=== PATIENT | male | born 1925 | race Caucasian/White ===

== ENCOUNTER 2016-11-30 20:56 | Emergency (ER) | payer BC ==
[~2016-11-30] VITALS: Ht 180.3 cm; Wt 75.0 kg
[~2016-11-30 20:56] MED LIST: ASPI81TA21 PO; ATOR-24 PO; CSPOPS OPB; HPRIS5M SQ; ISOS120T5 PO; MRPIS2 IV; NITR0.4S UT
[2016-11-30 20:58] VITALS: TEMP 36.5; Ht 180.3 cm; Wt 75.0 kg
[2016-11-30] MEDS ORDERED: AMOX875T PO (21:59)
[2016-11-30] MEDS ORDERED: AMOXICIL/CLAVU 875MG HOME PACK PO ONE (22:00)
--- NOTE | 2016-11-30 22:05 | EMERGENCY ROOM VISIT NOTE ---
ED Visit Note First contact with patient: 21:40 I did evaluate and examine this patient myself. I did guide management for the patient. I agree with the PA's assessment as discussed. Please see the PAs dictation for further details.
[2016-11-30 22:14] VITALS: BP 122/73; PULSE 63; O2SAT 94
[2016-11-30] MEDS ORDERED: DORZ1SOL6 OPB (22:44)
[2016-11-30] MEDS ORDERED: CLOP1TAB5 PO (22:44)
[2016-11-30] MEDS ORDERED: DOCU-94 PO (22:44)
[2016-11-30] MEDS ORDERED: CALCTAB7 PO (22:44)
[2016-11-30] MEDS ORDERED: CZR25 PO (22:44)
[2016-11-30] MEDS ORDERED: METO25TA56 PO (22:44)
--- NOTE | 2016-12-01 05:35 | EMERGENCY ROOM VISIT NOTE ---
ED Visit Note First contact with patient: 21:40 CHIEF COMPLAINT: Animal bite HISTORY OF PRESENT ILLNESS: This 89 yo patient presents to the emergency department after they sustained a cat bite to the right hand. The patient states he was petting his cat when he gets down accidentally bit him. The patient reports that the animal's immunizations are not up-to-date but does not believe this Has rabies as he is 15 years old and an indoor cat. The patient complains of mild 1/10 pain at the site of the injury. Pain is worse with movement. Tetanus status is up to date. REVIEW OF SYSTEMS: A 6 system review of systems was completed with positives and pertinent negatives listed in the HPI. ALLERGIES: none MEDICATIONS: reviewed PMH: Medical Problems: (1) AORTOCORONARY BYPASS Status: Resolved (2) CAD (coronary artery disease) Status: Chronic (3) HYPERTENSION NOS Status: Chronic (4) PERCUTANEOUS TRANSLUM CORON ANGIOPLASTY STATUS Status: Resolved (5) PURE HYPERCHOLESTEROLEM Status: Chronic Surgical Problems: (1) History of heart artery stent Status: Chronic PHYSICAL EXAM: Vital Signs reviewed, see Nurse's notes, vital signs stable. GENERAL: pleasant male, awake, alert, well appearing, no acute distress. Non toxic in appearance. MUSCULOSKELETAL: Examination of the hand reveals a puncture type of wound. There is minimal swelling on inspection. Palpation of the hand reveals no tenderness. No significant crepitus or warmth noted. No joint space, tendon, or vascular involvement. Distal pulses intact. SKIN: No signs of infection. NEURO: No sensory or motor deficits noted over all dermatomes and myotomes tested. EMERGENCY DEPARTMENT COURSE AND DECISION MAKING: I examined the patient. The patient presented with an isolated bite wound as described as above. By the history, there is very low concern for rabies exposure. No signs of infection on examination. ER Treatment: Department of Health paperwork completed. Antibiotic prophylaxis is indicated. The area was cleansed with Betadine and sterile saline and dressed with bacitracin and a bandage. Patient was advised to have the cat quarantined with his Vet as he declined the rabies vaccine and immunoglobulin. I do believe this is extremely low risk though. Patient was started on antibiotics. He was advised to follow-up family care in 2 days for wound recheck or here in the ER sooner for fevers, redness, drainage, worsening signs or symptoms or as needed. Discharge instructions reviewed. Discharged in stable condition. DIAGNOSIS: Right hand cat bite DISCHARGED INSTRUCTIONS: As below Problem List Medical Problems: (1) AORTOCORONARY BYPASS Status: Resolved (2) CAD (coronary artery disease) Status: Chronic (3) HYPERTENSION NOS Status: Chronic (4) PERCUTANEOUS TRANSLUM CORON ANGIOPLASTY STATUS Status: Resolved (5) PURE HYPERCHOLESTEROLEM Status: Chronic Surgical Problems: (1) History of heart artery stent Status: Chronic Current/Historical Medications Scheduled Amoxicillin & Pot Clavulanate (Augmentin 875-125 mg), 1 TAB PO BID Aspirin Enteric Coated (Ecotrin Or Generic), 81 MG PO DAILY Atorvastatin (Lipitor), 40 MG PO DAILY Calcium Carbonate-Vitamin D W/ (Caltrate 600 Plus), 1 TAB PO DAILY Clopidogrel Bisulfate (Plavix), 75 MG PO DAILY Docusate Sodium (Colace), 1 CAP PO DAILY Dorzolamide Hcl-Timolol Maleat (Cosopt Oph), 1 DROPS OPB BID Isosorbide Mononitrate (Imdur Ext Rel), 240 MG PO QAM Losartan Potassium (Losartan Potassium), 25 MG PO DAILY Metoprolol Tartrate (Lopressor) (Lopressor), 25 MG PO BID Nitroglycerin (Nitrostat), 0.4 MG UT PRN Allergies Coded Allergies: No Known Allergies (Verified Allergy, Unknown, ., 09/12/09) Vital Signs Date Time Temp Pulse Resp B/P Pulse Ox O2 Delivery O2 Flow Rate FiO2 11/30/16 22:14 63 20 122/73 94 11/30/16 20:58 36.5 73 20 159/80 94 Room Air Medications Administered Medications (Trade) Dose Ordered Sig/Wenceslao Route Start Time Stop Time Status Last Admin Dose Admin Amoxicillin/ Clavulanate Potassium (Augmentin 875MG Home Pack) 1 homepack UD ONCE PO 11/30/16 22:00 11/30/16 22:01 DC 11/30/16 22:05 1 HOMEPACK Departure Information Impression Primary Impression: Cat bite Dispostion Home / Self-Care Condition GOOD Prescriptions Amoxicillin & Pot Clavulanate (Augmentin 875-125 mg) 1 Tab Tab 1 TAB PO BID for 9 Days, #18 TAB Prov: Kelin Presley PA-C 11/30/16 Referrals Ayaka Carrasquillo DO (PCP) Forms HOME CARE DOCUMENTATION FORM, IMPORTANT VISIT INFORMATION Patient Instructions My [facility], ED Bite Animal General Additional Instructions Call your vet tomorrow morning and have your cat observed for possible rabies as you have elected not to receive the rabies series or vaccine today. Antibiotic ointment and bandage to the areas until healed. Follow up with family doctor or return for any signs of infection (increasing redness, swelling , drainage, or fever). Keep covered when in sun until fully healed then SPF 50 or higher until scar healed. Amoxicillin Clavulanate (Augmentin) 875mg: Take one pill twice daily for 10 days for your infection. All antibiotics can cause diarrhea. If this occurs and you feel worse or it does not resolve in 1-2 days follow up with your doctor or return to the Emergency Department as this could be signs of serious underlying problems. Any medication can cause an allergic reaction, stop the pills immediately and return to the ER for rash, hives, breathing difficulties, or swelling. Ibuprofen(Motrin, Advil) may be used for fever or pain. Use 600mg every six hours as needed. Take with food. Avoid using more than 2400mg in a 24 hour period. Do not use 2400mg per day for more than three consecutive days without physician direction. Prolonged inappropriate use can lead to stomach upset or ulcers. (AND/OR) Acetaminophen(Tylenol) may be used for fever or pain. Use 1000mg every six hours as needed. Avoid using more than 3000mg in a 24 hour period. Rest and drink plenty of fluids. Continue current medications. Return to the ER for severe pain, persistent fevers, spreading redness, or any worsening of your condition. Follow up with your primary physician within 2-3 days for a recheck of the current condition.
== END 2016-11-30 22:16 | disposition home or self-care (01) ==
LOC: C.EDB 20:57 → C.EDD 22:16
DX: S61.451A Open bite of right hand, initial encounter (principal); W55.01XA Bitten by cat, initial encounter; I25.10 Atherosclerotic heart disease of native coronary artery without angina pectoris; I10 Essential (primary) hypertension; E78.00 Pure hypercholesterolemia, unspecified; Z95.1 Presence of aortocoronary bypass graft

== ENCOUNTER → 2017-03-10 | Outpatient (CLI) | payer BC ==
[~2017-03-10] MED LIST changes: +CALCTAB7 PO; +CLOP1TAB5 PO; -CSPOPS OPB; +CZR25 PO; +DOCU-94 PO; +DORZ1SOL6 OPB; -HPRIS5M SQ; +METO25TA56 PO; -MRPIS2 IV
[2017-03-10 13:32] LABS: BASO % 0.2 %; BASO ABS # 0.01 K/uL (0-0.2); COMPLETE YES; EOS % 6.3 %; HEMATOCRIT 41.3 % (42-52); IG% 0.2 %; LYMPH % 24.1 %; LYMPH ABS # 1.27 K/uL (1.2-3.4); MEAN CELL VOLUME 101.7 fL (80-100); MEAN CORPUSCULAR HGB CONC 32.4 g/dl (32-36); MEAN PLATELET VOLUME 10.9 fL (7.4-10.4); MONO % 10.6 %; NEUT % 58.6 %; PLATELET COUNT 179 K/uL (130-400); RED BLOOD COUNT 4.06 M/uL (4.7-6.1); WHITE BLOOD COUNT 5.27 K/uL (4.8-10.8)
[2017-03-10 14:07] LABS: ALT/SGPT 20 U/L (12-78); BLOOD UREA NITROGEN 24 mg/dl (7-18); BUN/CREATININE RATIO 25.1 (10-20); CARBON DIOXIDE 29 mmol/L (21-32); CHLORIDE 108 mmol/L (98-107); CHOLESTEROL 139 mg/dl (0-200); CREATININE 0.94 mg/dl (0.60-1.40); GLUCOSE 99 mg/dl (70-99); POTASSIUM 4.3 mmol/L (3.5-5.1); SODIUM 143 mmol/L (136-145)
[2017-03-10 14:10] LABS: ALB/GLOB RATIO 1.1 (0.9-2); ALKALINE PHOSPHATASE 69 U/L (45-117); AST/SGOT 17 U/L (15-37); CHOLESTEROL/HDL RATIO 3.1; HDL CHOLESTEROL 45 mg/dl; LDL CHOLESTEROL CALCULATED 82 mg/dl; TRIGLYCERIDES 60 mg/dl (0-150); VERY LOW DENSITY LIPOPROT CALC 12 mg/dl
== END | disposition home or self-care (01) ==
LOC: C.LABBC 10:04
PROVIDERS: ATTEND Family Medicine
DX: I25.10 Atherosclerotic heart disease of native coronary artery without angina pectoris (principal); E78.5 Hyperlipidemia, unspecified; D49.0 Neoplasm of unspecified behavior of digestive system; I10 Essential (primary) hypertension; Z85.46 Personal history of malignant neoplasm of prostate